=== PATIENT | female | born 1980 | race African-American/Black ===

== ENCOUNTER 2017-03-17 05:05 | Emergency (ER) | payer MEDICAID, OTHER ==
[~2017-03-17] VITALS: Ht 182.9 cm; Wt 100.0 kg
[2017-03-17 05:07] VITALS: BP 136/88
== END 2017-03-17 06:25 | disposition home or self-care (01) ==
LOC: ED 05:24
DX: S90.32XA Contusion of left foot, initial encounter (principal); G89.11 Acute pain due to trauma; Z88.0 Allergy status to penicillin; W21.02XA Struck by soccer ball, initial encounter; Y93.66 Activity, soccer; Y92.322 Soccer field as the place of occurrence of the external cause; Y99.8 Other external cause status
CPT/HCPCS: 99284

== ENCOUNTER 2018-09-25 09:00 | Emergency (ER) | payer SELFPAY ==
[~2018-09-25] VITALS: Ht 182.9 cm; Wt 110.0 kg
[2018-09-25 09:05] VITALS: BP 121/84
[2018-09-25] MEDS ORDERED: LIDOCAINE 1%-EPI 1:100K, 20ML ONE (10:03)
--- NOTE | 2018-09-25 10:11 | NUR ---
Provider at bedside to perform I&D for superficial retained body removal.
[2018-09-25] MEDS ORDERED: LIDOCAINE 1%-EPI 1:100K, 20ML INFIL ONE (10:30)
--- NOTE | 2018-09-25 11:00 | NUR ---
Providers still I&D'ing wound
[2018-09-25] MEDS ORDERED: DIPH,PERTUSS(ACELL),TET VAC/PF 0.5 ML IM-VACC ONE ×2 (11:35→12:00)
== END 2018-09-25 11:47 | disposition home or self-care (01) ==
LOC: ED 11:40
DX: S30.850A Superficial foreign body of lower back and pelvis, initial encounter (principal); Z88.0 Allergy status to penicillin; X58.XXXA Exposure to other specified factors, initial encounter; Y93.89 Activity, other specified; Y92.89 Other specified places as the place of occurrence of the external cause; Y99.8 Other external cause status
CPT/HCPCS: 10120; 73502; 90471; 90715; 99284; J3490